=== PATIENT | female | born 1960 | race Caucasian/White ===

== ENCOUNTER 2025-10-28 09:04 | Day surgery (SDC) | payer MEDICARE, OTHER ==
[~2025-10-28] VITALS: Ht 170.2 cm; Wt 77.1 kg
[2025-10-28] VITALS (11 sets, daily range): BP systolic 130–163; BP diastolic 74–106
[2025-10-28] MEDS ORDERED: ATOR10 PO (09:26)
[2025-10-28] MEDS ORDERED: ASPI81CH PO (09:26)
[2025-10-28] MEDS ORDERED: VIT D3 PO (09:27)
[2025-10-28] MEDS ORDERED: FARXIGA5 MG PO (09:27)
[2025-10-28] MEDS ORDERED: LOSA50 PO (09:28)
[2025-10-28] MEDS ORDERED: GLIP10 PO (09:28)
[2025-10-28] MEDS ORDERED: METO25ER PO (09:29)
[2025-10-28] MEDS ORDERED: MAGNESIUM GLU27.5 M1 PO (09:29)
[2025-10-28] MEDS ORDERED: NS 500 ML IV ONE (09:34)
[2025-10-28] MEDS ORDERED: Nitroglycerin 2 MG/20 ML BTL ONE (09:35)
[2025-10-28] MEDS ORDERED: Heparin Sodium 1000 Units/ML 10ML MDV ONE (09:35)
[2025-10-28] MEDS ORDERED: NS 1,000 ML IV ONE ×2 (09:35→09:40)
[2025-10-28] MEDS ORDERED: JARDIANCE10 MG PO (09:39)
[2025-10-28] MEDS ORDERED: FentaNYL Citrate 50 MCG/ML 2 ML Injection ONE (09:40)
[2025-10-28] MEDS ORDERED: Midazolam HCl 1MG / ML 2ML Vial ONE (09:40)
--- NOTE | 2025-10-28 11:24 | NUR ---
pt back to recovery from lab. pt a&o. groin site soft and non-tender per pt. no bleeding/hematoma noted.
[2025-10-28] MEDS ORDERED: CLOP75 PO (11:30)
--- NOTE | 2025-10-28 12:44 | NUR ---
RIGHT FEM GROIN SITE STILL SOFT NON-TENDER WITH NO HEMATOMA, NO PULSATILE BLEEDING AND INTACT DRESSING. R PT STILL DOPPLER PULSE. PT UP TO 45 DEGREES AND EATING LUNCH. PT'S SON IN ROOM; CALL LIGHT IN REACH.
--- NOTE | 2025-10-28 13:11 | NUR ---
NO CHANGES TO R FEM SITE.
--- NOTE | 2025-10-28 14:02 | NUR ---
NO CHANGES TO R FEM GROIN SITE. DISCHARGE INSTRUCTIONS REVIEWED ALL QUESTIONS ANSWERED. 22 G IV DISCONTINUED FROM RIGHT AC WITH INTACT CANNULA. PT ESCORTED OUT VIA WHEELCHAIR ESCORT.
== END 2025-10-28 14:56 | disposition home or self-care (01) ==
LOC: MHTC 09:04
DX: E11.51 Type 2 diabetes mellitus with diabetic peripheral angiopathy without gangrene (principal); I70.222 Atherosclerosis of native arteries of extremities with rest pain, left leg; I70.92 Chronic total occlusion of artery of the extremities; E78.5 Hyperlipidemia, unspecified; F17.210 Nicotine dependence, cigarettes, uncomplicated; E11.42 Type 2 diabetes mellitus with diabetic polyneuropathy; Z79.82 Long term (current) use of aspirin; Z79.84 Long term (current) use of oral hypoglycemic drugs; Z79.899 Other long term (current) drug therapy; Z95.820 Peripheral vascular angioplasty status with implants and grafts
CPT/HCPCS: 76937; 99152; 99153; A9270; C1725; C1753; C1760; C1769; C1874; C1887; C1894; J1644; J2250; J3010; J7030; J7050; Q9967